=== PATIENT | male | born 2000 | race African-American/Black ===

== ENCOUNTER 2022-10-08 05:34 | Emergency (ER) | payer MEDICAID, OTHER ==
[~2022-10-08] VITALS: Ht 177.8 cm; Wt 72.7 kg
[2022-10-08 06:25] VITALS: BP 124/63
[2022-10-08] MEDS ORDERED: LIDOCAINE 5% TRANSDERMAL PATCH TD ONE (06:30)
[2022-10-08] MEDS ORDERED: KETOROLAC TROMETHAMINE 30 MG/ML VIAL IM ONE (06:30)
[2022-10-08] MEDS ORDERED: LIDO700A15 TP (06:52)
[2022-10-08] MEDS ORDERED: CYCL-448 PO (06:52)
== END 2022-10-08 07:06 | disposition home or self-care (01) ==
LOC: EMS 05:37
DX: M77.9 Enthesopathy, unspecified (principal); M25.512 Pain in left shoulder
CPT/HCPCS: 99283; 73030; 96372; J1885